=== PATIENT | female | born 1990 | race Caucasian/White ===

== ENCOUNTER → 2023-01-05 | Day surgery (SDC) | payer OTHER | END | disposition home or self-care (01) | LOC: JRADUS-SUR 11:42 | PROVIDERS: ATTEND Obstetrics & Gynecology | PROC: BU18YZZ Fluoroscopy of Uterus and Fallopian Tubes using Other Contrast (ICD-10-PCS; principal; 2023-01-05) | DX: N97.9 Female infertility, unspecified (principal) | CPT/HCPCS: 58340; 74740-TC-FY; 76000-TC-FY; 84703 ==